=== PATIENT | female | born 1980 | race Caucasian/White ===

== ENCOUNTER 2016-03-24 20:04 | Emergency (ER) | payer MEDICARE ==
[2016-03-24 20:13] VITALS: O2SAT 97
[2016-03-24] MEDS ORDERED: NORCO 5/325 MG PO ONE ×2 (20:26→22:10)
[2016-03-24] MEDS ORDERED: Rocephin 1000 MG INJ IM ONE (20:27)
--- NOTE | 2016-03-24 20:27 | ERPHSYRPT ---
- History of Present Illness Time Seen by Provider: 03/24/16 20:19 Source: patient Exam Limitations: no limitations Patient Subjective Stated Complaint: "i tripped on the deck and hit my face ont he floor. i didn't not pass out" Triage Nursing Assessment: aox3, breathign easy unlabnored, skin pink warm dry with superfical abrassion noted to nose, swelling noted to top lip, steady gait Physician History: ABOUT 2 HOURS AGO PT WAS AT HOME WALKING UP HER BACK PORCH STEPS WHEN SHE SLIPPED AND FELL FORWARD HITTING HER FACE ON THE WOODEN PORCH FLOOR WITH RESULTANT HEADACHE, EPISTAXIS, NOSE AND UPPER LIP SWELLING/PAIN/ABRASION. PT DENIES VOMITING, SEIZURE, ABDOMINAL PAIN, CHEST PAIN, TINGLING/NUMBNESS, WEAKNESS. Allergies/Adverse Reactions: olmesartan medoxomil [From Benicar] Allergy (Mild, Verified 03/24/16 20:10) chest pain Penicillins Allergy (Mild, Verified 03/24/16 20:10) unsure of reaction tramadol Allergy (Verified 03/24/16 20:10) "JUMPY, NERVOUS" aspirin Adverse Reaction (Mild, Verified 03/24/16 20:10) upset stomach codeine [Codeine] Adverse Reaction (Mild, Verified 03/24/16 20:10) upset stomach Home Medications: Bupropion HCl [Wellbutrin] 300 mg PO DAILY 09/02/11 [History] Venlafaxine HCl [Effexor] 300 mg PO DAILY 09/02/11 [History] Albuterol Sulfate [Proventil Hfa] 6.7 gm IH DAILY PRN PRN 12/16/11 [History] Lisinopril 30 mg PO DAILY 05/13/14 [History] Amphet Asp/Amphet/D-Amphet [Adderall 30 mg Tablet] 60 mg PO DAILY 09/21/14 [ History] Buspirone HCl [Buspar] 15 mg PO BID 09/21/14 [History] Lamotrigine [Lamictal] 275 mg PO DAILY 09/21/14 [History] Hx Tetanus, Diphtheria Vaccination/Date Given: No Hx Influenza Vaccination/Date Given: No Hx Pneumococcal Vaccination/Date Given: No - Review of Systems Ears, Nose, & Throat: Other (UPPER LIP AND NOSE SWELLING/ABRASION/PAIN) Respiratory: No Dyspnea Cardiac: No Chest Pain Abdominal/Gastrointestinal: No Abdominal Pain, No Nausea, No Vomiting Musculoskeletal: No Back Pain Neurological: Headache All Other Systems: Reviewed and Negative - Past Medical History Pertinent Past Medical History: Yes ENT History: No Pertinent History Cardiac History: Hypertension Respiratory History: Asthma Musculoskeletal History: Arthritis, Other Psycho-Social History: Depression - Past Surgical History Past Surgical History: Yes Gastrointestinal: Cholecystectomy Musculoskeletal: Orthopedic Surgery, Other Female Surgical History: Section, Tubal Ligation, Other - Social History Smoking Status: Former smoker Exposure to second hand smoke: No Drug Use: none Patient Lives Alone: No - Female History Hx Now: No - Nursing Vital Signs Nursing Vital Signs: Initial Vital Signs Temperature 97.6 F Temperature Source Oral Pulse Rate 89 Respiratory Rate 14 Blood Pressure [Right Arm] 110/57 Pain Intensity 6 - Manuel Coma Score Best Eye Response ([place]): (4) open spontaneously Best Verbal Response ([place]): (5) oriented Best Motor Response ([place]): (6) obeys commands Manuel Total: 15 - Physical Exam General Appearance: alert Eye Exam: PERRL/EOMI, eyes nml inspection ENT Exam: airway nml, hearing grossly normal, other (MILD EDEMA, TENDERNESS AND ABRASION OF THE NOSE AND UPPER LIP) Neck Exam: trachea midline, full range of motion Respiratory/Chest Exam: normal breath sounds Cardiovascular Exam: normal heart sounds Gastrointestinal Exam: soft, normal bowel sounds Back Exam: normal range of motion, No vertebral tenderness Extremity Exam: normal inspection, No pedal edema Peripheral Pulses: dorsalis-pedis (R): 3+, dorsalis-pedis (L): 3+ Neurologic Exam: alert, cooperative, sensation nml, No motor deficits SpO2 Interpretation: normal SpO2: 97 Oxygen Delivery: Room Air - Course Nursing assessment & vital signs reviewed: Yes - CT Exams Head CT Interpretation: Discussed w/radiologist (NORMAL HEAD CT) Maxillofacial Bones CT Interpretation: Discussed w/radiologist (NEGATIVE CT FACIAL BONES) Cervical Spine CT Interpretation: Discussed w/radiologist (LORDOTIC REVERSAL; NEGATIVE FX/ SUBLUXATION.) Ordered Tests: Active Orders 24 hr Category Date Time Status CERVICAL SPINE WO CONTRAST [CT] Stat Exams 03/24/16 20:25 Taken FACIAL BONES WO CONTRAST [CT] Stat Exams 03/24/16 20:26 Taken HEAD WITHOUT CONTRAST [CT] Stat Exams 03/24/16 20:26 Taken Medication Summary Discontinued Medications Generic Name Dose Route Start Last Admin Trade Name Remberto PRN Reason Stop Dose Admin Acetaminophen/Hydrocodone Bitart 2 tab 03/24/16 20:26 03/24/16 20:37 Equality 5/325 Mg PO 03/24/16 20:27 2 tab STAT ONE Administration Acetaminophen/Hydrocodone Bitart Confirm 03/24/16 20:32 Equality 5/325 Mg Administered 03/24/16 20:33 Dose 2 tab .ROUTE .STK-MED ONE Ceftriaxone Sodium 1,000 mg 03/24/16 20:27 03/24/16 20:37 Rocephin 1000 Mg Inj IM 03/24/16 20:28 1,000 mg STAT ONE Administration Ceftriaxone Sodium Confirm 03/24/16 20:32 Rocephin 1000 Mg Inj Administered 03/24/16 20:33 Dose 1,000 mg .ROUTE .STK-MED ONE Lidocaine HCl Confirm 03/24/16 20:32 Xylocaine 1% Hcl 20 Ml Mdv Administered 03/24/16 20:33 Dose 1 ml .ROUTE .STK-MED ONE - Departure Time of Disposition: 22:10 Departure Disposition: Home Clinical Impression: FACIAL CONTUSION/ABRASIONS, HEADACHE, CERVICAL STRAIN Condition: Fair Critical Care Time: No Instructions: Cervical Strain, Closed Head Injury, Post-traumatic Headache Additional Instructions: FOLLOW UP WITH PRIVATE DOCTOR TOMORROW. Prescriptions: Naproxen [Naprosyn] 500 mg PO Q12H PRN PRN #20 tablet PRN Reason: Pain Azithromycin 250 mg [Zithromax 250 MG TABLET] 250 mg PO ZPACK #6 tablet Cyclobenzaprine HCl [Flexeril] 10 mg PO TID #20 tablet
[2016-03-24] MEDS ORDERED: Rocephin 1000 MG INJ ONE (20:32)
[2016-03-24] MEDS ORDERED: XYLOCAINE 1% HCL 20 ML MDV ONE (20:32)
[2016-03-24] MEDS ORDERED: NORCO 5/325 MG ONE ×2 (20:32→22:14)
[2016-03-24 21:49] VITALS: BP 110/57; PULSE 89
--- NOTE | 2016-03-25 08:32 | XRAY ---
Indication: Forehead and facial pain following fall. Multiple contiguous axial images obtained through the head without contrast. Comparison: None Normal-appearing brain parenchyma, ventricles, and bony calvarium. Visualized paranasal sinuses and mastoid air cells are pneumatized and clear. Impression: Normal CT head without contrast exam. CTDI 47.70
--- NOTE | 2016-03-25 08:36 | XRAY ---
Indication: Forehead and facial pain following fall. Multiple contiguous axial images obtained through the facial bones. Sagittal and coronal reformatted images obtained. Comparison: None No acute fracture, suspicious bony lesions, or radiopaque foreign body. Orbits including roof, osuna, and floor intact. Paranasal sinuses are pneumatized and clear. Visualized noncontrasted soft tissues including base of the brain unremarkable CT head and cervical spine reported separately. Impression: Negative CT facial bone study. CTDI 88.43
--- NOTE | 2016-03-25 08:38 | XRAY ---
Indication: Pain following fall. Multiple contiguous axial images obtained through the cervical spine. Sagittal and coronal reformatted images obtained. Comparison: None Axial images negative for acute fracture, suspicious bony lesions, or spinal canal stenosis. Mild anterior C6-C7 endplate spurring. Sagittal and coronal reformatted images demonstrates lordotic reversal, positional versus paraspinal muscular spasm. Disc spaces maintained. No acute compression fracture, subluxation, or jumped facet. Normal-appearing craniocervical junction. Visualized noncontrasted soft tissues including base of the brain and lung apices are unremarkable. Impression: Negative for acute fracture/subluxation. Lordotic reversal, positional versus paraspinal spasm. CTDI 145.47
== END 2016-03-24 22:26 | disposition home or self-care (01) ==
LOC: ED 20:04
DX: S00.83XA Contusion of other part of head, initial encounter (principal); S00.31XA Abrasion of nose, initial encounter; S00.511A Abrasion of lip, initial encounter; I10 Essential (primary) hypertension; R51 Headache; S16.1XXA Strain of muscle, fascia and tendon at neck level, initial encounter; W01.198A Fall on same level from slipping, tripping and stumbling with subsequent striking against other object, initial encounter
CPT/HCPCS: 96372; 99284; 70450; 72125; 70486; A9270; 99283; J0696; L0120

== ENCOUNTER 2016-10-23 14:33 | Emergency (ER) | payer MEDICARE ==
--- NOTE | 2016-10-23 14:52 | ERPHSYRPT ---
- History of Present Illness Time Seen by Provider: 10/23/16 14:39 Source: patient Physician History: CC: head injury Hx: 36 y/o patient of ADELIA Whaley with hx of HTN. She had prior BTL. She was at home in garage and a brick fell 5 feet from a shelf and hit her in the back of the head. She is unsure about LOC. No neck pain. No back pain. No other injuries. No N/T/W. Unsure last tetanus vaccine. Occurred: just prior to arrival (1 1/2 hour ago) Loss of Consciousness: unsure Associated Symptoms: nausea Allergies/Adverse Reactions: olmesartan medoxomil [From Benicar] Allergy (Mild, Verified 10/23/16 14:50) chest pain Penicillins Allergy (Mild, Verified 10/23/16 14:50) unsure of reaction tramadol Allergy (Verified 10/23/16 14:50) "JUMPY, NERVOUS" aspirin Adverse Reaction (Mild, Verified 10/23/16 14:50) upset stomach codeine [Codeine] Adverse Reaction (Mild, Verified 10/23/16 14:50) upset stomach Home Medications: Bupropion HCl [Wellbutrin] 300 mg PO DAILY 09/02/11 [History] Venlafaxine HCl [Effexor] 300 mg PO DAILY 09/02/11 [History] Albuterol Sulfate [Proventil Hfa] 6.7 gm IH DAILY PRN PRN 12/16/11 [History] Lisinopril 30 mg PO DAILY 05/13/14 [History] Amphet Asp/Amphet/D-Amphet [Adderall 30 mg Tablet] 60 mg PO DAILY 09/21/14 [ History] Lamotrigine [Lamictal] 275 mg PO DAILY 09/21/14 [History] Hx Tetanus, Diphtheria Vaccination/Date Given: No Hx Influenza Vaccination/Date Given: No Hx Pneumococcal Vaccination/Date Given: No - Review of Systems Constitutional: No Symptoms Eyes: No Vision Changes Ears, Nose, & Throat: No Symptoms Respiratory: No Symptoms Abdominal/Gastrointestinal: Nausea, No Vomiting Skin: No Rash Neurological: Headache, No Dizziness, No Focal Weakness, No Parasthesia All Other Systems: Reviewed and Negative - Past Medical History Pertinent Past Medical History: Yes ENT History: No Pertinent History Cardiac History: Hypertension Respiratory History: Asthma Musculoskeletal History: Arthritis, Other Psycho-Social History: Depression - Past Surgical History Past Surgical History: Yes Gastrointestinal: Cholecystectomy Musculoskeletal: Orthopedic Surgery, Other Female Surgical History: Section, Tubal Ligation, Other - Social History Smoking Status: Former smoker Exposure to second hand smoke: No Drug Use: none Patient Lives Alone: No - Female History Hx Now: No - Nursing Vital Signs Nursing Vital Signs: Initial Vital Signs Temperature 98.8 F 10/23/16 14:43 Pulse Rate 102 H 10/23/16 14:43 Respiratory Rate 18 10/23/16 14:43 Blood Pressure 146/91 10/23/16 14:43 O2 Sat by Pulse Oximetry 95 10/23/16 14:43 Pain Scale Pain Intensity 4 - Manuel Coma Score Best Eye Response (Manuel): (4) open spontaneously Best Verbal Response (Manuel): (5) oriented Best Motor Response (Manuel): (6) obeys commands [place] Total: 15 - Physical Exam General Appearance: alert Head Injury: swelling (posterior scalp) Eye Exam: bilateral eye: PERRL, EOMI ENT Exam: airway nml Neck Exam: supple, No mid-line tenderness Cardiovascular/Respiratory Exam: normal breath sounds, regular rate/rhythm Gastrointestinal/Abdominal Exam: soft, no distention Back Exam: normal inspection, normal range of motion Extremity Exam: non-tender, normal range of motion Mental Status Exam: alert, cooperative Motor/Sensory Exam: no motor deficit, no sensory deficit Skin Exam: warm, dry, No rash - Course Nursing assessment & vital signs reviewed: Yes - CT Exams head CT Interpretation: Negative, Tele-radiologist Report cervical CT Interpretation: Tele-radiologist Report, DJD, No Fracture, No Subluxation Ordered Tests: Active Orders 24 hr Category Date Time Status Cold Application STAT Care 10/23/16 15:24 Active Wound Care STAT Care 10/23/16 15:24 Active CERVICAL SPINE WO CONTRAST [CT] Stat Exams 10/23/16 15:36 Taken HEAD WITHOUT CONTRAST [CT] Stat Exams 10/23/16 14:44 Completed Medication Summary Discontinued Medications Generic Name Dose Route Start Last Admin Trade Name Freq PRN Reason Stop Dose Admin Acetaminophen 650 mg 10/23/16 15:23 10/23/16 15:30 Tylenol 325 Mg PO 10/23/16 15:24 650 mg STAT ONE Administration Acetaminophen Confirm 10/23/16 15:29 Tylenol 325 Mg Administered 10/23/16 15:30 Dose 650 mg .ROUTE .STK-MED ONE Diphtheria/Tetanus/Acell Pertussis 0.5 ml 10/23/16 15:24 10/23/16 15:31 Adacel Vial IM 10/23/16 15:25 0.5 ml .ONCE ONE Administration Diphtheria/Tetanus/Acell Pertussis Confirm 10/23/16 15:32 Adacel Vial Administered 10/23/16 15:33 Dose 0.5 ml IM .STK-MED ONE - Progress Progress Note: 10/23/16 15:38 Small abrasion scalp. Head CT negative. Tetanus given. APAP given. She now has neck pain and will get CT cervical spine to rule out fx. 10/23/16 16:26 Instr given. Counseled pt/family regarding: diagnosis, need for follow-up - Departure Time of Disposition: 16:26 Departure Disposition: Home Clinical Impression: Concussion, Cervical sprain Condition: Stable Critical Care Time: No Referrals: JULIANNA WHALEY NP [Primary Care Provider] - Instructions: Concussion Additional Instructions: HEAD INJURY 1. A responsible person should observe the patient at home for 24 hours. 2. If any of the following signs or symptoms are observed or occur, call your family physician or return to the emergency department: A. Behavior change B. Persistent vomiting C. Unequal pupils D. Increasing drowsiness E. Difficulty in arousing the patient F. Severe headache G. Lump on head increasing in size CERVICAL (NECK) STRAIN 1. Take medication as prescribed for discomfort. 2. Use warm compresses for 1-2 days on the affected area. 3. Follow up with your family physician if not improved in 2-3 days. 4. You should call your family physician or return to the emergency department for any numbness, tingling, or weakness of the arms or legs. Rx ibuprofen. No driving and stay with family today. Return for problems or concerns. Prescriptions: Ibuprofen 600 mg PO Q6H PRN PRN #15 tablet PRN Reason: Pain
[2016-10-23] MEDS ORDERED: TYLENOL 325 MG PO ONE (15:23)
[2016-10-23] MEDS ORDERED: Adacel Vial IM ONE ×2 (15:24→15:32)
[2016-10-23] MEDS ORDERED: TYLENOL 325 MG ONE (15:29)
--- NOTE | 2016-10-23 15:29 | XRAY ---
Indication: Posterior head injury. Multiple contiguous axial images obtained through the head without contrast. Comparison: March 24, 2016. Again normal appearing brain parenchyma, ventricles, and bony calvarium. Visualized paranasal sinuses and mastoid air cells clear. Impression: Stable normal CT head without contrast exam. CT DI 51.37
[2016-10-23 15:40] VITALS: BP 124/45; PULSE 70; O2SAT 94
--- NOTE | 2016-10-23 16:28 | XRAY ---
Indication: Pain following head/neck injury. Multiple contiguous axial images obtained through the cervical spine. Sagittal and coronal reformatted images obtained. Comparison: March 24, 2016. Axial images again negative for acute fracture, suspicious bony lesions, or spinal canal stenosis. Stable mild anterior C6-C7 endplate spurring. Sagittal and coronal reformatted images again demonstrates lordotic reversal, positional versus paraspinal muscular spasm. Disc spaces maintained. No acute compression fracture, subluxation, or jumped facet. Normal-appearing craniocervical junction. Visualized noncontrasted soft tissues including lung apices unremarkable. CT had reported separately. Impression: Stable CT cervical spine exam again demonstrating mild C6-C7 degenerative changes and lordotic reversal, positional versus paraspinal spasm. Negative for acute fracture/subluxation. CTDI 140.55
== END 2016-10-23 16:43 | disposition home or self-care (01) ==
LOC: ED 14:33
DX: S06.0X9A Concussion with loss of consciousness of unspecified duration, initial encounter (principal); S13.4XXA Sprain of ligaments of cervical spine, initial encounter; W20.8XXA Other cause of strike by thrown, projected or falling object, initial encounter; S00.01XA Abrasion of scalp, initial encounter
CPT/HCPCS: 70450; 72125; 90471; 90715; 99284; A9270-GY

== ENCOUNTER 2018-11-24 13:03 | Day surgery (SDC) | payer MEDICARE ==
[2012-01-09 11:20] VITALS: BP 130/83
[2018-11-24] MEDS ORDERED: Xylocaine 1% Vial 30 ML PF IJ ONE (13:04)
[2018-11-24] MEDS ORDERED: Sodium Chloride 0.9(Preservative Free) 10 ML IJ ONE (13:04)
[2018-11-24] MEDS ORDERED: Depo-Medrol 40 MG/ML IM ONE (13:04)
[2018-11-24] MEDS ORDERED: DIPRIVAN 200 MG/20 ML IV ONE (14:38)
[2018-11-24] MEDS ORDERED: Lactated Ringers 1,000 ML IV ONE (15:27)
--- NOTE | 2018-11-24 16:39 | XRAY ---
Indication: Lumbar CHANELLE. Intraoperative fluoroscopy was provided for 17 seconds. 2 digital spot images submitted for interpretation demonstrates midline posterior needle tip just posterior to the lumbosacral interspace. Correlate with intraoperative findings/report. Incidental bilateral posterior L4-L5 spinal hardware and intervertebral spacer.
--- NOTE | 2018-11-24 17:04 | XRAY ---
17 seconds fluoroscopy time in surgery for lumbar CHANELLE.
== END 2018-11-24 15:13 | disposition home or self-care (01) ==
LOC: SDC-PAIN 13:03
PROVIDERS: ATTEND Psychiatry & Neurology Pain Medicine
DX: M54.16 Radiculopathy, lumbar region (principal); I10 Essential (primary) hypertension; F41.8 Other specified anxiety disorders; J45.909 Unspecified asthma, uncomplicated; Z79.899 Other long term (current) drug therapy
CPT/HCPCS: 62323; 72100; 77003; 84703; J1030; J2001; J2704; Q9966

== ENCOUNTER 2020-11-09 21:18 | Emergency (ER) | payer MEDICARE ==
[2020-11-09] MEDS ORDERED: DECADRON 10MG INJ. IV ONE (21:40)
[2020-11-09] MEDS ORDERED: HYDROCODONE-ACETAMIN 2.5-108/5 ML SOLUTION PO STA (21:40)
[2020-11-09] MEDS ORDERED: DECADRON 10MG INJ. ONE (22:07)
[2020-11-09] MEDS ORDERED: HYDROCODONE-ACETAMIN 2.5-108/5 ML SOLUTION ONE (22:07)
[2020-11-09 22:19] LABS: Absolute Neutrophil Ct (ANC) 2.64 (1.4-6.9); BASOPHIL % 0.2 % (0.0-0.4); Basophil (Absolute #) 0.01 (0-0.4); Eosinophil % 1.4 % (0.00-5.0); Eosinophil (Absolute #) 0.07 (0-0.5); Hematocrit 40.1 % (35-47); Hemoglobin 12.9 gm/dl (12.0-16.0); Lymphocyte (Absolute #) 1.97 (1.0-4.6); Lymphocytes % 39.3 % (24.0-44.0); Mean Cell Volume 96.2 fl (78-100); Mean Corpuscular Hemoglobin 30.9 pg (26-32); Mean Corpuscular Hgb Concent. 32.2 g/dl (32-36); Mean Platelet Volume 9.9 fl (7.5-11.0); Monocyte (Absolute #) 0.32 (0.0-1.3); Monocytes % 6.4 % (0.0-12.0); Neutrophil % 52.7 % (36.0-66.0); Platelet Count 212 K/mm3 (150-450); Red Blood Count 4.17 M/mm3 (4.1-5.4); Red Cell Distribution Width 13.5 % (11.5-14.0)
[2020-11-09 22:28] LABS: ALBUMIN 3.8 g/dL (3.5-5.0); ALKALINE PHOSPHATASE 84 U/L (38-126); ANION GAP 13.1 MEQ/L (5-15); BLOOD UREA NITROGEN 19 mg/dL (7-17); CHLORIDE 104 mmol/L (98-107); Calcium 9.2 mg/dL (8.4-10.2); Carbon Dioxide 26 mmol/L (22-30); Creatinine 1 0.93 mg/dL (0.52-1.04); EST GLOMERULAR FILTRATION RATE > 60.0 ML/MIN; Glucose 113 mg/dL (74-106); Potassium 3.2 mmol/L (3.5-5.1); SGOT/AST 58 U/L (14-36); SGPT/ALT 42 U/L (0-35); SODIUM 140 mmol/L (137-145); Total Protein 6.8 g/dL (6.3-8.2)
[2020-11-09 22:34] VITALS: O2SAT 98
--- NOTE | 2020-11-09 22:34 | ERPHSYRPT ---
- History of Present Illness Time Seen by Provider: 11/09/20 21:23 Source: patient Exam Limitations: no limitations Patient Subjective Stated Complaint: "I'm having a hard time breathing." Triage Nursing Assessment: The patient is a 40 y/o morbidely obese white female with PMH significant for HTN, DM, depression, and arthritis. She presents to the ED via private vehicle with report of worsenign dyspena and cough. The patient reported that she tested positive for COVID on 11/01/20. She reported using her home nebulizer with slight relief. However, she has recently ran out of the nebulizer. She denied headache, dizziness, chest pain, palpitations, N/V/D. She reported exertional dyspnea. Pupils 3mm bilateral. Neck supple without lymphadenopathy. Symmetrical chest excursion. Lungs vesicular with expiratory wheezes and slight dimished movement to the right anterior/posterior mid/lower lobes. Heart tones S1/S2 RRR without extra sounds. Abdomen obese non-distended, non-surgical, and without peritoneal signs. bowel sounds present in all megha drants. Peripheral pulses +3 bilateral. No noted dependent edema. Physician History: 40 years old morbidly obese female with history of hypertension, hyperlipidemia, anxiety/depression, unvaccinated against COVID-19 presented in the ER with cold symptoms for the last 10 days. Patient reports she was tested positive on November 01 and since then was doing fine until last couple of days when she started to have increasing cough and shortness of breath initially with activity and now even resting. Minimal productive cough and mostly dry. Feeling chest tightness and pressure but no fever or chills reported. She used neb treatments earlier and it seems to help loosen up her sputum and open the chest but she does not have any more treatment solution at home. Allergies/Adverse Reactions: olmesartan medoxomil [From Benicar] Allergy (Mild, Verified 11/09/20 21:20) chest pain Penicillins Allergy (Mild, Verified 11/09/20 21:20) unsure of reaction tramadol Allergy (Verified 11/09/20 21:20) "JUMPY, NERVOUS" aspirin Adverse Reaction (Mild, Verified 11/09/20 21:20) upset stomach codeine [Codeine] Adverse Reaction (Mild, Verified 11/09/20 21:20) upset stomach Home Medications: Bupropion HCl [Wellbutrin] 300 mg PO DAILY 07/24/12 [History] Venlafaxine HCl [Effexor] 300 mg PO DAILY 09/02/11 [History] Albuterol Sulfate [Proventil Hfa] 6.7 gm IH DAILY PRN PRN 12/16/11 [History] lisinopriL [Lisinopril] 30 mg PO DAILY 05/13/14 [History] Amphet Asp/Amphet/D-Amphet [Adderall 30 mg Tablet] 60 mg PO DAILY 09/21/14 [History] Lamotrigine [Lamictal] 275 mg PO DAILY 09/21/14 [History] Hx Tetanus, Diphtheria Vaccination/Date Given: No Hx Influenza Vaccination/Date Given: Yes Hx Pneumococcal Vaccination/Date Given: No Travel Risk - International Travel Have you traveled outside of the country in past 3 weeks: No - Coronavirus Screening Are you exhibiting any of the following symptoms?: Yes Symptoms: Cough: New Onset, Shortness of Breath Close contact with a COVID-19 positive Pt in past 14-21 Days: Yes - Vaccine Status Have you recieved a Covid-19 vaccination: No - Review of Systems Constitutional: Fatigue, Weakness Eyes: No Symptoms Ears, Nose, & Throat: Nose Congestion, Throat Pain Respiratory: Cough, Dyspnea, Dyspnea on Exertion (ACOSTA), Wheezing Cardiac: Chest Pain Abdominal/Gastrointestinal: No Symptoms Genitourinary Symptoms: No Symptoms Musculoskeletal: Myalgias Skin: No Symptoms Neurological: No Symptoms Psychological: No Symptoms Endocrine: No Symptoms Hematologic/Lymphatic: No Symptoms Immunological/Allergic: No Symptoms - Past Medical History Pertinent Past Medical History: Yes ENT History: No Pertinent History Cardiac History: Hypertension Respiratory History: Asthma Musculoskeletal History: Arthritis, Other Psycho-Social History: Depression Other Medical History: COVID 19 - Past Surgical History Past Surgical History: Yes Gastrointestinal: Cholecystectomy Musculoskeletal: Orthopedic Surgery, Other Female Surgical History: Section, Tubal Ligation, Other Other Surgical History: Back surgery - Social History Smoking Status: Never smoker Exposure to second hand smoke: No Drug Use: none Patient Lives Alone: No - Female History Hx Now: (unkn) - Nursing Vital Signs Nursing Vital Signs: Initial Vital Signs Temperature 95.9 F 11/09/20 21:18 Pulse Rate 98 H 11/09/20 21:18 Respiratory Rate 28 H 11/09/20 21:18 Blood Pressure 132/91 11/09/20 21:18 O2 Sat by Pulse Oximetry 98 11/09/20 21:18 Pain Scale Pain Intensity 0 - Physical Exam General Appearance: no apparent distress, alert, anxiety Eye Exam: PERRL/EOMI, eyes nml inspection Ears, Nose, Throat Exam: nasal congestion, pharyngeal erythema Neck Exam: normal inspection, non-tender, full range of motion Respiratory Exam: crackles/rales, rhonchi, wheezing Cardiovascular/Chest Exam: normal heart sounds, regular rate/rhythm Abdominal/Gastrointestinal Exam: soft, normal bowel sounds, No tenderness Extremity Exam: non-tender, normal range of motion Neurologic Exam: alert, oriented x 3, cooperative Skin Exam: normal color SpO2 Interpretation: normal SpO2: 98 O2 Delivery: Room Air - Course EKG Interpreted by Me: RATE (93), Sinus Rhythm, NORMAL AXIS, NORMAL INTERVALS, Q-wave, Non-specific ST Changes Ordered Tests: Active Orders 24 hr Category Date Time Status Higher Level Teaching Assistant STAT Care 11/09/20 21:40 Active EKG-ER Only STAT Care 11/09/20 21:39 Active IV Insertion STAT Care 11/09/20 21:39 Active Oxygen-ED Only Nasal Cannula 2 lpm Care 11/09/20 21:39 Active CHEST WITH CONTRAST [CT] Stat Exams 11/09/20 22:33 Taken BLOOD CULTURE Stat Lab 11/09/20 22:15 Received CBC W DIFF Stat Lab 11/09/20 22:15 Completed CMP Stat Lab 11/09/20 22:15 Completed D-DIMER QUANTITATIVE Stat Lab 11/09/20 22:15 Completed HCG,QUALITATIVE URINE Stat Lab 11/09/20 22:10 Completed Lactic Acid Stat Lab 11/09/20 22:02 Completed TROPONIN Q3H Lab 11/09/20 22:15 Completed TROPONIN Q3H Lab 11/10/20 00:45 Ordered TROPONIN Q3H Lab 11/10/20 03:45 Ordered TROPONIN Q3H Lab 11/10/20 06:45 Ordered TROPONIN Q3H Lab 11/10/20 09:45 Ordered UA W/RFX UR CULTURE Stat Lab 11/09/20 22:10 Completed Medication Summary Discontinued Medications Generic Name Dose Route Start Last Admin Trade Name Freq PRN Reason Stop Dose Admin Hydrocodone Bitart/Acetaminophen 15 ml 11/09/20 21:40 11/09/20 22:11 Hydrocodone-Acetamin 2.5-108/5 Ml Solution PO 11/09/20 21:41 15 ml STAT STA Administration Hydrocodone Bitart/Acetaminophen Confirm 11/09/20 22:07 Hydrocodone-Acetamin 2.5-108/5 Ml Solution Administered 11/09/20 22:08 Dose 15 ml .ROUTE .STK-MED ONE Dexamethasone Sodium Phosphate 6 mg 11/09/20 21:40 11/09/20 22:13 Decadron 10mg Inj. IV 11/09/20 21:41 6 mg STAT ONE Administration Dexamethasone Sodium Phosphate Confirm 11/09/20 22:07 Decadron 10mg Inj. Administered 11/09/20 22:08 Dose 10 mg .ROUTE .STK-MED ONE Lab/Rad Data: Laboratory Result Diagrams 11/09/20 22:15 11/09/20 22:15 Laboratory Results 11/09/20 11/09/20 11/09/20 Range/Units 22:15 22:15 22:15 WBC (4.0-10.5) K/mm3 RBC (4.1-5.4) M/mm3 Hgb (12.0-16.0) gm/dl Hct (35-47) % MCV (78-100) fl MCH (26-32) pg MCHC (32-36) g/dl RDW (11.5-14.0) % Plt Count (150-450) K/mm3 MPV (7.5-11.0) fl Gran % (36.0-66.0) % Eos # (Auto) (0-0.5) Absolute Lymphs (auto) (1.0-4.6) Absolute Monos (auto) (0.0-1.3) Lymphocytes % (24.0-44.0) % Monocytes % (0.0-12.0) % Eosinophils % (0.00-5.0) % Basophils % (0.0-0.4) % Absolute Granulocytes (1.4-6.9) Basophils # (0-0.4) D-Dimer 953 H* (215-500) ng/mL Sodium 140 (137-145) mmol/L Potassium 3.2 L (3.5-5.1) mmol/L Chloride 104 (98-107) mmol/L Carbon Dioxide 26 (22-30) mmol/L Anion Gap 13.1 (5-15) MEQ/L BUN 19 H (7-17) mg/dL Creatinine 0.93 (0.52-1.04) mg/dL Estimated GFR > 60.0 ML/MIN Glucose 113 H (74-106) mg/dL Lactic Acid (0.4-2.0) Calcium 9.2 (8.4-10.2) mg/dL Total Bilirubin 0.30 (0.2-1.3) mg/dL AST 58 H (14-36) U/L ALT 42 H (0-35) U/L Alkaline Phosphatase 84 (38-126) U/L Troponin I < 0.012 (0.000-0.034) ng/mL Serum Total Protein 6.8 (6.3-8.2) g/dL Albumin 3.8 (3.5-5.0) g/dL Urine Color (YELLOW) Urine Appearance (CLEAR) Urine pH (5-6) Ur Specific [place] (1.005-1.025) Urine Protein (Negative) Urine Ketones (NEGATIVE) Urine Blood (0-5) David/ul Urine Nitrite (NEGATIVE) Urine Bilirubin (NEGATIVE) Urine Urobilinogen (0-1) mg/dL Ur Leukocyte Esterase (NEGATIVE) Urine WBC (Auto) (0-5) /HPF Urine RBC (Auto) (0-2) /HPF U Epithel Cells (Auto) (FEW) /HPF Urine Bacteria (Auto) (NEGATIVE) /HPF Urine Mucus (Auto) (NEGATIVE) /HPF Urine Culture Reflexed (NO) Urine Glucose (NEGATIVE) mg/dL Urine HCG, Qual (Negative) 11/09/20 11/09/20 11/09/20 Range/Units 22:15 22:10 22:10 WBC 5.0 (4.0-10.5) K/mm3 RBC 4.17 (4.1-5.4) M/mm3 Hgb 12.9 (12.0-16.0) gm/dl Hct 40.1 (35-47) % MCV 96.2 (78-100) fl MCH 30.9 (26-32) pg MCHC 32.2 (32-36) g/dl RDW 13.5 (11.5-14.0) % Plt Count 212 (150-450) K/mm3 MPV 9.9 (7.5-11.0) fl Gran % 52.7 (36.0-66.0) % Eos # (Auto) 0.07 (0-0.5) Absolute Lymphs (auto) 1.97 (1.0-4.6) Absolute Monos (auto) 0.32 (0.0-1.3) Lymphocytes % 39.3 (24.0-44.0) % Monocytes % 6.4 (0.0-12.0) % Eosinophils % 1.4 (0.00-5.0) % Basophils % 0.2 (0.0-0.4) % Absolute Granulocytes 2.64 (1.4-6.9) Basophils # 0.01 (0-0.4) D-Dimer (215-500) ng/mL Sodium (137-145) mmol/L Potassium (3.5-5.1) mmol/L Chloride (98-107) mmol/L Carbon Dioxide (22-30) mmol/L Anion Gap (5-15) MEQ/L BUN (7-17) mg/dL Creatinine (0.52-1.04) mg/dL Estimated GFR ML/MIN Glucose (74-106) mg/dL Lactic Acid (0.4-2.0) Calcium (8.4-10.2) mg/dL Total Bilirubin (0.2-1.3) mg/dL AST (14-36) U/L ALT (0-35) U/L Alkaline Phosphatase (38-126) U/L Troponin I (0.000-0.034) ng/mL Serum Total Protein (6.3-8.2) g/dL Albumin (3.5-5.0) g/dL Urine Color YELLOW (YELLOW) Urine Appearance SLIGHTLY CLOUDY (CLEAR) Urine pH 5.0 (5-6) Ur Specific [place] 1.026 (1.005-1.025) Urine Protein 30 (Negative) Urine Ketones NEGATIVE (NEGATIVE) Urine Blood NEGATIVE (0-5) David/ul Urine Nitrite NEGATIVE (NEGATIVE) Urine Bilirubin NEGATIVE (NEGATIVE) Urine Urobilinogen NEGATIVE (0-1) mg/dL Ur Leukocyte Esterase NEGATIVE (NEGATIVE) Urine WBC (Auto) 3-5 (0-5) /HPF Urine RBC (Auto) NONE (0-2) /HPF U Epithel Cells (Auto) RARE (FEW) /HPF Urine Bacteria (Auto) RARE (NEGATIVE) /HPF Urine Mucus (Auto) SLIGHT (NEGATIVE) /HPF Urine Culture Reflexed NO (NO) Urine Glucose NEGATIVE (NEGATIVE) mg/dL Urine HCG, Qual NEGATIVE (Negative) 11/09/20 Range/Units 22:02 WBC (4.0-10.5) K/mm3 RBC (4.1-5.4) M/mm3 Hgb (12.0-16.0) gm/dl Hct (35-47) % MCV (78-100) fl MCH (26-32) pg MCHC (32-36) g/dl RDW (11.5-14.0) % Plt Count (150-450) K/mm3 MPV (7.5-11.0) fl Gran % (36.0-66.0) % Eos # (Auto) (0-0.5) Absolute Lymphs (auto) (1.0-4.6) Absolute Monos (auto) (0.0-1.3) Lymphocytes % (24.0-44.0) % Monocytes % (0.0-12.0) % Eosinophils % (0.00-5.0) % Basophils % (0.0-0.4) % Absolute Granulocytes (1.4-6.9) Basophils # (0-0.4) D-Dimer (215-500) ng/mL Sodium (137-145) mmol/L Potassium (3.5-5.1) mmol/L Chloride (98-107) mmol/L Carbon Dioxide (22-30) mmol/L Anion Gap (5-15) MEQ/L BUN (7-17) mg/dL Creatinine (0.52-1.04) mg/dL Estimated GFR ML/MIN Glucose (74-106) mg/dL Lactic Acid 1.7 (0.4-2.0) Calcium (8.4-10.2) mg/dL Total Bilirubin (0.2-1.3) mg/dL AST (14-36) U/L ALT (0-35) U/L Alkaline Phosphatase (38-126) U/L Troponin I (0.000-0.034) ng/mL Serum Total Protein (6.3-8.2) g/dL Albumin (3.5-5.0) g/dL Urine Color (YELLOW) Urine Appearance (CLEAR) Urine pH (5-6) Ur Specific [place] (1.005-1.025) Urine Protein (Negative) Urine Ketones (NEGATIVE) Urine Blood (0-5) David/ul Urine Nitrite (NEGATIVE) Urine Bilirubin (NEGATIVE) Urine Urobilinogen (0-1) mg/dL Ur Leukocyte Esterase (NEGATIVE) Urine WBC (Auto) (0-5) /HPF Urine RBC (Auto) (0-2) /HPF U Epithel Cells (Auto) (FEW) /HPF Urine Bacteria (Auto) (NEGATIVE) /HPF Urine Mucus (Auto) (NEGATIVE) /HPF Urine Culture Reflexed (NO) Urine Glucose (NEGATIVE) mg/dL Urine HCG, Qual (Negative) - Progress Progress: improved Air Movement: good Progress Note: 11/10/20 00:14 40 years old is evaluated for shortness of breath cough that positive Covid. She is given liquid hydrocodone along with Decadron, on reevaluation feeling much better. She is maintaining oxygen saturation at room air around 96%. Not in any distress. As elevated D-dimer and CTA ruled out pulmonary embolism but did show some groundglass opacities consistent with Covid pneumonia. I would give her a short course of steroids along with doxycycline and neb treatments to go home. Outpatient follow-up recommended. Blood Culture(s) Obtained: Yes Antibiotics given: Yes Counseled pt/family regarding: lab results, diagnosis, need for follow-up, rad results - Departure Departure Disposition: Home Clinical Impression: Pneumonia due to COVID-19 virus, Hypokalemia Condition: Stable Critical Care Time: No Referrals: JULIANNA FELIPE NP [Primary Care Provider] - Follow Up with PCP/3 days Instructions: Coronavirus Disease 2019 (COVID-19) Additional Instructions: Follow contact/droplet precautions. Monitor your oxygen saturation at home and return to ER if it is dropping below 90. Use breathing treatments every 4-6 hours as needed. Follow-up with primary care for reevaluation. Return to ER for worsening shortness of breath cough, persistent fever etc. Prescriptions: Dexamethasone [Decadron] 6 mg PO DAILY #5 tablet Albuterol 2.5 mg/3 ml Neb [Proventil 2.5 mg/3 ml Neb] 2.5 mg IH Q6H PRN 15 Days #60 PRN Reason: Shortness Of Breath/Wheezing Doxycycline Hyclate 100 mg [Vibramycin 100 MG] 100 mg PO BID #14 tab
[2020-11-09 22:54] LABS: Appearance SLIGHTLY CLOUDY (CLEAR); Bacteria RARE /HPF (NEGATIVE); Bilirubin NEGATIVE (NEGATIVE); Blood NEGATIVE Ery/ul (0-5); Epithelial Cells RARE /HPF (FEW); Glucose NEGATIVE (NEGATIVE); Ketones NEGATIVE (NEGATIVE); Leukocyte Esterase NEGATIVE (NEGATIVE); Mucus SLIGHT /HPF (NEGATIVE); Nitrite NEGATIVE (NEGATIVE); Protein,Urine Dip 30 (Negative); Specific Gravity 1.026 (1.005-1.025); Urobilinogen NEGATIVE mg/dL (0-1)
[2020-11-10] MEDS ORDERED: Vibramycin 100 MG PO ONE (00:16)
[2020-11-10] MEDS ORDERED: Vibramycin 100 MG ONE (00:27)
[2020-11-10 01:00] VITALS: BP 122/78; PULSE 88
--- NOTE | 2020-11-10 06:54 | XRAY ---
Indication: Short of breath. Positive Covid 19. Multiple contiguous axial images obtained through the chest using 80 cc Isovue 370 contrast and PE protocol. Comparison: None There is adequate opacification of the pulmonary arteries including lobar and segmental branches. No pulmonary embolus. Heart not enlarged. Aorta is normal in course and caliber. No pathologic mediastinal/hilar lymphadenopathy. Lungs inflated with diffuse bilateral patchy airspace disease. No consolidation or effusion. Bony thorax intact with minimal degenerative changes throughout the spine. Limited upper abdomen demonstrates fatty liver and cholecystectomy clips. Impression: 1. Negative pulmonary embolus. 2. Diffuse bilateral patchy airspace disease. Commonly reported imaging features of Covid 19 pneumonia are present. Other processes such as influenza pneumonia and organizing pneumonia, as can be seen with drug toxicity and connective tissue disease, can cause a similar imaging pattern. 3. Incidental fatty liver. Comment: Preliminary interpretation made by C. No critical discrepancy.
== END 2020-11-10 00:57 | disposition home or self-care (01) ==
LOC: ED 21:18
DX: U07.1 COVID-19 (principal); J12.89 Other viral pneumonia
CPT/HCPCS: 36000; 36415; 71260; 80053; 81001; 83605; 84484; 84703; 85025; 85379; 87040; 93005; 93041; 96374; 99284; J1100; A9270-GY